=== PATIENT | female | born 1975 | race American Indian/Alaskan Native ===

== ENCOUNTER 2017-01-20 18:48 | Emergency (ER) | payer SELFPAY ==
[2017-01-20 20:19] LABS: Basophils % (Auto) 0.9 % (0.0-1.8); Eosinophils % (Auto) 3.7 % (0.0-4.3); Hematocrit 33.7 % (30.3-42.9); Hemoglobin 10.6 gm/dl (10.1-14.3); Mean Corpuscular HGB Conc 32 % (30-34); Mean Corpuscular Volume 73 fl (79-97); Platelet Count 255 K/mm3 (140-440); Red Blood Count 4.63 M/mm3 (3.65-5.03); Red Cell Distribution Width 15.7 % (13.2-15.2); White Blood Count 5.8 K/mm3 (4.5-11.0)
[2017-01-20 20:26] LABS: Anion Gap 14 mmol/L; BUN/Creatinine Ratio 12; Blood Urea Nitrogen 11 mg/dL (7-17); Calcium 8.4 mg/dL (8.4-10.2); Carbon Dioxide 28 mmol/L (22-30); Chloride 99.9 mmol/L (98-107); Glucose 111 mg/dL (65-100); Potassium 3.6 mmol/L (3.6-5.0); Sodium 138 mmol/L (137-145)
[2017-01-20 20:28] LABS: Mean Corpuscular Hemoglobin 23 pg (28-32)
--- NOTE | 2017-01-20 20:54 | XRay Report ---
FINAL REPORT PROCEDURE: XR CHEST ROUTINE 2V TECHNIQUE: PA and lateral chest radiographs were obtained. CPT 70003 HISTORY: chest pressure and sob COMPARISON: No prior studies are available for comparison. FINDINGS: Heart: Mild cardiomegaly is noted. Mediastinum/Vessels: Mild pulmonary venous congestion is noted. Lungs/Pleural space: Normal. Bony thorax: No acute osseous abnormality. Other: IMPRESSION: Mild cardiomegaly with pulmonary venous congestion is suggestive of early CHF..
[2017-01-20] MEDS ORDERED: COREG ONE (23:22)
[2017-01-20] MEDS ORDERED: COREG PO ONE (23:23)
[2017-01-21] MEDS ORDERED: APRESOLINE IV ONE (02:32)
--- NOTE | 2017-01-21 06:07 | Emergency Department Report ---
ED Chest Pain HPI - General Chief Complaint: Chest Pain Stated Complaint: HIGH BLOOD PRESSURE Time Seen by Provider: 01/21/17 02:22 Source: patient Mode of arrival: Ambulatory Limitations: No Limitations - History of Present Illness Initial Comments: This is a 41 year-old female presents to the emergency department with a complaint of some numbness to the left side of the face right around her sinuses, some chest pain earlier in the evening that was associated with some shortness of breath and some palpitations. She went to a fire department and had her blood pressure taken and was found to be very elevated. The patient does have a history of hypertension and is on carvedilol but says she has been out of this medication for a few months. She also has a history of a previous embolism from 4 years ago. She did 6 months of anticoagulation at that time but is not currently on any. No recent travel or sick contacts at home. She denies tobacco or illicit drug use or abuse. Primary care physician is a Dr. Whitney. 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 She denies any headache, vision change, slurred speech or any other neurological deficits. Severity scale (0 -10): 6 - Related Data Previous Rx's Medication Instructions Recorded Last Taken Type Acetaminophen/Codeine [Tylenol #3] 1 tab PO Q6H PRN #20 tab 06/07/15 Unknown Rx Ibuprofen [Motrin] 600 mg PO Q8H PRN #40 tablet 06/07/15 Unknown Rx Azithromycin [Zithromax Z-KAMRON] 250 mg PO DAILY #6 tab 01/21/17 Unknown Rx Carvedilol [Coreg] 12.5 mg PO BID #60 tablet 01/21/17 Unknown Rx Allergies Allergy/AdvReac Type Severity Reaction Status Date / Time lisinopril Allergy Angioedema Verified 06/07/15 13:16 Sulfa (Sulfonamide Allergy Shortness Verified 06/07/15 13:16 Antibiotics) of Breath Heart Score - HEART Score History: Slightly suspicious EKG: Non-specific Age: < 45 Risk factors: 1-2 risk factors Troponin: < normal limit HEART Score: 2 - Critical Actions Critical Actions: 0-3 pts:0.9-1.7%risk of adverse cardiac event.Candidate for discharge ED Review of Systems ROS: Stated complaint: HIGH BLOOD PRESSURE Other details as noted in HPI Comment: All other systems reviewed and negative Constitutional: denies: chills, fever Eyes: denies: eye pain, eye discharge, vision change ENT: denies: ear pain, throat pain Respiratory: shortness of breath. denies: cough Cardiovascular: chest pain. denies: palpitations Gastrointestinal: denies: abdominal pain, nausea, diarrhea Genitourinary: denies: urgency, dysuria, discharge Musculoskeletal: denies: back pain, joint swelling, arthralgia Skin: denies: rash, lesions Neurological: numbness. denies: headache ED Past Medical Hx - Past Medical History Hx Hypertension: Yes Hx Pulmonary Embolism: Yes Hx Asthma: Yes - Surgical History Additional Surgical History: x 1 - Social History Smoking Status: Never Smoker Substance Use Type: None - Medications Home Medications: Home Medications Medication Instructions Recorded Confirmed Last Taken Type Acetaminophen/Codeine [Tylenol #3] 1 tab PO Q6H PRN #20 tab 06/07/15 Unknown Rx Ibuprofen [Motrin] 600 mg PO Q8H PRN #40 tablet 06/07/15 Unknown Rx Azithromycin [Zithromax Z-KAMRON] 250 mg PO DAILY #6 tab 01/21/17 Unknown Rx Carvedilol [Coreg] 12.5 mg PO BID #60 tablet 01/21/17 Unknown Rx ED Physical Exam - General Limitations: No Limitations - Other Other exam information: GENERAL: The patient is well-developed well-nourished. HENT: Normocephalic. Atraumatic. Patient has moist mucous membranes. EYES: Extraocular motions are intact. Pupils equal reactive to light bilaterally. NECK: Supple. Trachea is midline. CHEST/LUNGS: Clear to auscultation. There is no respiratory distress noted. HEART/CARDIOVASCULAR: Regular. There is no tachycardia. There is no gallop rub or murmur. ABDOMEN: Abdomen is soft, nontender. Patient has normal bowel sounds. There is no abdominal distention. Obese habitus. SKIN: There is no rash. There is no edema. There is no diaphoresis. NEURO: The patient is awake, alert, and oriented. The patient is cooperative. The patient has no motor deficits. There is some subjective decreased sensation to the left side of the face/cheek when compared to the right. The patient has normal speech. Cranial nerves II through XII grossly intact. No pronator drift. No dysmetria. No facial asymmetry. MUSCULOSKELETAL: There is no tenderness or deformity. There is no limitation range of motion. There is no evidence of acute injury. Muscle strength 5 out of 5 upper and lower extremity bilaterally. ED Course Vital Signs 01/20/17 01/20/17 01/20/17 18:56 23:06 23:24 Temperature 98.3 F 98.6 F Pulse Rate 100 H 82 82 Respiratory 18 18 Rate Blood Pressure 199/99 191/101 191/101 Blood Pressure [Left] O2 Sat by Pulse 100 100 Oximetry 01/21/17 01/21/17 01/21/17 01:00 01:28 03:11 Temperature 98.6 F 98.6 F Pulse Rate 74 72 89 Respiratory 18 16 Rate Blood Pressure 173/92 178/88 Blood Pressure 181/90 [Left] O2 Sat by Pulse 100 96 Oximetry - Reevaluation(s) Reevaluation #1: This patient has been reevaluated multiple times for multiple hours and has remained stable throughout her ED course. Despite some localized left-sided cheek and her facial numbness, the patient does not have any other focal, motor or sensory deficits in her cranial nerves are intact. The patient herself says it feels like sinus pressure. She had a CT of the head without contrast done that does not appear to show any acute process but I'm waiting on the radiology reading. The patient will be having a CT scan done of his chest secondary to an elevated d-dimer. She says that she has no chest pain whatsoever. She does not have any headache. Labs, other than knee elevated and equivocal d-dimer, had been unremarkable including negative troponins 2. She is a heart score criteria of 2 and low on the MICHELET score. The patient's CT angiography of the chest does not show any pulmonary embolus and more aortic dissection or any other acute process, that the patient will be set up for discharge to home with referral and follow-up with cardiology. Her blood pressure has come down to a much more reasonable level. 01/21/17 06:28 MICHELET score - Michelet Score Age > 65: (0) No Aspirin use within the Past 7 Days: (0) No 3 or more CAD Risk Factors: (0) No 2 or more Angina events in past 24 hrs: (1) Yes Known CAD with more than 50% Stenosis: (0) No Elevated Cardiac Markers: (0) No ST Deviation Greater than 0.5mm: (0) No MICHELET Score: 1 ED Medical Decision Making - Lab Data Result diagrams: 01/20/17 19:20 01/20/17 19:20 - EKG Data -: EKG Interpreted by Me EKG shows normal: sinus rhythm, axis, intervals, QRS complexes, ST-T waves (T- wave inversions through the lateral leads V4 through V6) Rate: normal - EKG Data When compared to previous EKG there are: previous EKG unavailable Interpretation: other (T-wave inversions to the lateral leads) - Radiology Data Radiology results: report reviewed, image reviewed interpreted by me: Chest x-ray shows some mild pulmonary vascular congestion. No overt pleural effusions. No obvious pneumonia. EXAM: CT ANGIO CHEST HISTORY: Chest pain, Elevated dimer TECHNIQUE: CT imaging obtained through the chest in pulmonary angiographic phase following intravenous administration of contrast. Transaxial, Coronal and sagittal reformats with maximal intensity projections are provided. PRIORS: Chest radiographs 01/20/2017 FINDINGS: Normal caliber main pulmonary artery. Central or segmental pulmonary embolism. Contrast opacification of the pulmonary arterial tree is insufficient for more detailed evaluation of pulmonary embolism. No pericardial effusion. Mild cardiomegaly. Thoracic aorta is normal in course and caliber. No periaortic fluid or stranding. No pneumothorax or effusion. Focal airspace disease is present in the posterior medial right lower lung on axial series 3, image 73. There is a 10 x 13 millimeter superior segment right lower lung predominantly ground-glass attenuating nodule with possible small/punctate solid components on axial series 3, image 60. The central airways are patent. No bronchiectasis. Imaged portion of the upper abdomen is unremarkable. The superficial soft tissues are unremarkable. No acute bony abnormality or worrisome osseous lesions identified. IMPRESSION: No central or segmental pulmonary embolism. Focal airspace disease in the posterior medial right lower lung may represent infection. Superior segment right lower lung mixed solid and predominantly ground-glass attenuating 13 x 10 millimeter nodule. Recommendation: Follow-up chest CT 3 months for further evaluation of above described solitary pulmonary nodule. Follow-up CT can also be utilized to ensure resolution of right lower lobe airspace disease. Transcribed By: SOILA Dictated By: MANASA SILVEIRA MD Electronically Authenticated By: MANASA SILVEIRA MD Signed Date/Time: 01/21/17 0252 EXAM: CT HEAD/BRAIN WO CON HISTORY: left sided facial numbness TECHNIQUE: CT imaging acquired through the head without intravenous contrast. Transaxial reformations are provided. PRIORS: None. FINDINGS: The ventricles, cisterns and sulci are within normal limits. No intraparenchymal or extra-axial mass, hemorrhage, or mass effect. Kennedy and white-matter differentiation is within normal limits. Normal spherical shape of the globes. Paranasal sinuses and mastoid air cells are clear. No skull or facial fracture visualized. IMPRESSION: No acute intracranial abnormality. Transcribed By: MB Dictated By: MANASA SILVEIRA MD Electronically Authenticated By: MANASA SILVEIRA MD Signed Date/Time: 01/21/17 0241 - Medical Decision Making This is a patient who presents with very elevated blood pressure has not been on her Coreg for a couple of months. She had some intermittent chest pain but that has appeared to resolve upon or prior to presentation. She also complains of some left-sided facial numbness that she later describes more as like a sinus pressure. She does not have any focal, motor or sensory deficits in her cranial nerves are intact. The labs were mostly unremarkable except for a elevated and equivocal d-dimer. CT of the head without contrast did not show any bleed, shift, mass or any acute process. CT angiography of the chest shows no pulmonary embolus him. There is a area of focal airspace disease in the posterior medial right lower lung that could represent infection, so the patient was placed on some antibiotics. There is a area that is considered a solid nodule that will need three-month follow-up. Her EKG showed some T-wave inversions to the lateral leads but no ST elevation [place] or dysrhythmia. She has had negative troponins 2. Since she does not have any chest pain and has not had any since being in the emergency department, it appears as if she is safe for discharge home at this time for follow-up with primary care and cardiology. Her blood pressure was quite elevated upon presentation but she was given some antihypertensives and it has come down to a more reasonable level with her blood pressure being 140/80 prior to discharge. We discussed dietary and lifestyle changes to make to help with her blood pressure. She will return to the ER with any worsening of her symptoms or any acute distress. She was given discharge instructions while in the emergency department and QUESTIONS HAVE BEEN ANSWERED. - Differential Diagnosis [place], PE, CVA, TIA, sinusitis Critical Care Time: No Critical care attestation.: If time is entered above; I have spent that time in minutes in the direct care of this critically ill patient, excluding procedure time. ED Disposition Clinical Impression: Hypertensive urgency, Numbness and tingling of left side of face, Intermittent chest pain, Pulmonary nodule Disposition: TO HOME OR SELFCARE Is pt being admited?: No Condition: Stable Instructions: Chest Pain (ED), Hypertension (ED), Pulmonary Nodules (ED) Additional Instructions: Please follow up with a primary care doctor in the next few days. I have given you a referral for a local dusting and brushing machine operator, Dr. William, to follow up regarding your elevated blood pressure and your previous chest pain. Return to the emergency department with any return of her chest pain, any worsening of her symptoms, or any acute distress. Please try and stay away from foods that are high in salt and caffeinated products to help with your blood pressure. Keep a blood pressure log. Prescriptions: Azithromycin [Zithromax Z-KAMRON] 250 mg PO DAILY #6 tab Carvedilol [Coreg] 12.5 mg PO BID #60 tablet Referrals: PRIMARY CAREMD [Primary Care Provider] - 3-5 Days TODD WILLIAM MD [Staff Physician] - 3-5 Days Time of Disposition: 06:54
[2017-01-21] MEDS ORDERED: NACL ONE (06:37)
--- NOTE | 2017-01-21 06:43 | Cat Scan Report ---
FINAL REPORT EXAM: CT HEAD/BRAIN WO CON HISTORY: left sided facial numbness TECHNIQUE: CT imaging acquired through the head without intravenous contrast. Transaxial reformations are provided. PRIORS: None. FINDINGS: The ventricles, cisterns and sulci are within normal limits. No intraparenchymal or extra-axial mass, hemorrhage, or mass effect. Kennedy and white-matter differentiation is within normal limits. Normal spherical shape of the globes. Paranasal sinuses and mastoid air cells are clear. No skull or facial fracture visualized. IMPRESSION: No acute intracranial abnormality.
--- NOTE | 2017-01-21 06:54 | Cat Scan Report ---
FINAL REPORT EXAM: CT ANGIO CHEST HISTORY: Chest pain, Elevated dimer TECHNIQUE: CT imaging obtained through the chest in pulmonary angiographic phase following intravenous administration of contrast. Transaxial, Coronal and sagittal reformats with maximal intensity projections are provided. PRIORS: Chest radiographs 01/20/2017 FINDINGS: Normal caliber main pulmonary artery. Central or segmental pulmonary embolism. Contrast opacification of the pulmonary arterial tree is insufficient for more detailed evaluation of pulmonary embolism. No pericardial effusion. Mild cardiomegaly. Thoracic aorta is normal in course and caliber. No periaortic fluid or stranding. No pneumothorax or effusion. Focal airspace disease is present in the posterior medial right lower lung on axial series 3, image 73. There is a 10 x 13 millimeter superior segment right lower lung predominantly ground-glass attenuating nodule with possible small/punctate solid components on axial series 3, image 60. The central airways are patent. No bronchiectasis. Imaged portion of the upper abdomen is unremarkable. The superficial soft tissues are unremarkable. No acute bony abnormality or worrisome osseous lesions identified. IMPRESSION: No central or segmental pulmonary embolism. Focal airspace disease in the posterior medial right lower lung may represent infection. Superior segment right lower lung mixed solid and predominantly ground-glass attenuating 13 x 10 millimeter nodule. Recommendation: Follow-up chest CT 3 months for further evaluation of above described solitary pulmonary nodule. Follow-up CT can also be utilized to ensure resolution of right lower lobe airspace disease.
[2017-01-21 07:01] VITALS: BP 140/80
== END 2017-01-21 07:21 | disposition home or self-care (01) ==
LOC: ED 18:48
DX: I16.0 Hypertensive urgency (principal); R91.1 Solitary pulmonary nodule; Z88.2 Allergy status to sulfonamides; Z88.8 Allergy status to other drugs, medicaments and biological substances
CPT/HCPCS: 36415; 70450; 71020; 71275; 80048; 83880; 84484; 85025; 85379; 93005; 93010; 96374; 99285; J0360; Q9967